=== PATIENT | male | born 1970 | race Caucasian/White ===

== ENCOUNTER 2019-03-05 19:36 | Emergency (ER) | payer MEDICARE, MEDICAID, SELFPAY ==
[2019-03-05 19:42] VITALS: BP 134/90; PULSE 101; RESP 16; TEMP 36.7; O2SAT 99
--- NOTE | 2019-03-05 20:02 | ED.GENADUL_ITS ---
Discharge Plan Disposition Patient Disposition: HOME Condition: Good Discharge Details Chief Complaint: Orthopedic Clinical Impression: Contusion ED Provider: Pramod Cedeno Home Meds and New Rx's Prescriptions: No Action mirtazapine 15 mg Tablet 15 mg PO HS RF: 0 carbidopa-levodopa [Sinemet] 25-100 mg Tablet 1 tab PO TID RF: 0 cholecalciferol (vitamin D3) [Vitamin D3] 400 unit Tablet 400 unit PO DAILY RF: 0 docusate sodium 100 mg Tablet 100 mg PO BID RF: 0 Discharge Instructions Instructions: Contusion in Adults (ED) Additional Instructions: Please continue to use Tylenol or Motrin as needed for pain. Please make sure that he drinks plenty of water. If you notice any worsening of your symptoms, or any new symptoms such as vomiting, diarrhea, fever, chills, shortness of breath, chest pain, numbness, weakness, or fainting , please return immediately to the emergency department for reevaluation. Please follow up with your primary care provider as soon as possible for reassessment and reevaluation. As always, it was a pleasure participating in your medical care today. Medical Decision Making This is a 48-year-old male with no significant past medical history except for Parkinson's, severe cerebral palsy, who is still able to perform some tasks with assistance. Family state that this morning he was found next to his bed instead of in it. He had been complaining of some pain in his right shoulder, but is otherwise nonverbal at baseline and unable to fully discuss his symptoms. Exam demonstrates redness, firmness and tenderness in the right shoulder. Minimal swelling of the left ankle, minimal swelling of the right elbow. Mild bruising over the right anterior chest. No evidence of significant deformities, no signs of other severe trauma. No evidence of blood behind the tympanic membranes or midline cervical thoracic or lumbar spine tenderness. Due to the patient's inability to verbalize his symptom we will get an x-ray of the chest right shoulder right elbow and left ankle. 9:20 PM Patient's x-rays have returned negative for any acute fracture, process, or dislocation. Feel his symptoms are most likely second to contusion. We will recommend continued hydration, NSAIDs as needed, and close follow-up. We will place his right arm in a sling for comfort as I am concerned there may be a ligamentous injury. Recommend close follow-up with his PCP. I have extensively reviewed the treatment plan and discharge instructions with the patient. I have addressed all patient concerns at this time. The patient was made aware of what symptoms to monitor for that would warrant a return to the emergency department. Discussed the plan with the patient, they demonstrate verbal understanding and agreement with our assessment and plan at this time. TECHNIQUE: Imaging protocol: XR Right elbow. Views: 3 or more views. COMPARISON: No relevant prior studies available. FINDINGS: Bones/joints: No acute fracture or dislocation. No significant joint effusion. Soft tissues: Moderate subcutaneous edema of the distal right arm/elbow. IMPRESSION: No acute fracture or dislocation. Moderate subcutaneous edema of the distal right arm/elbow. Thank you for allowing us to participate in the care of your patient. Dictated and Authenticated by: Atilio Simpson MD 03/05/2019 9:11 PM Eastern Time ( & [place]) TECHNIQUE: Imaging protocol: XR Right shoulder, complete 2 or more views. COMPARISON: No relevant prior studies available. FINDINGS: Bones/joints: No acute fracture or dislocation. Right acromioclavicular and coracoclavicular interval is within normal limits. Focal cortical thickening along the lateral aspect of the proximal right humeral diaphysis is attributed to muscular insertion tug lesion/deltoid insertion. Soft tissues: Moderate subcutaneous edema predominantly along the lateral aspect of the right arm. IMPRESSION: No acute fracture or dislocation. Moderate soft tissue edema, predominantly along the lateral aspect of the right arm. Thank you for allowing us to participate in the care of your patient. Dictated and Authenticated by: Atilio Simpson MD 03/05/2019 9:12 PM Eastern Time ( & [place]) TECHNIQUE: Imaging protocol: XR of the chest, 2 views. COMPARISON: No relevant prior studies available. FINDINGS: Lungs: Lungs are adequately inflated and symmetric. No focal consolidation or pulmonary edema. Pleural space: No pleural effusion. No pneumothorax. Heart/Mediastinum: Cardiomediastinal contours within normal limits. Bones/joints: No displaced fracture. Soft tissues: No focal soft tissue abnormailty. IMPRESSION: No displaced fracture. No pneumothorax or pleural effusion. Thank you for allowing us to participate in the care of your patient. Dictated and Authenticated by: Atilio Simpson MD 03/05/2019 9:13 PM Eastern Time ([place] & [place]) CLINICAL HISTORY: 48 years old, male; Injury or trauma; Fall; Initial encounter; Swelling (edema); Ankle; Left TECHNIQUE: Imaging protocol: XR Left ankle. Views: 3 or more views. COMPARISON: No relevant prior studies available. FINDINGS: Bones/joints: No suspicious osseous lytic or blastic lesion. No discrete or displaced fracture. No joint dislocation. Ankle mortise is preserved. Soft tissues: Mild anterolateral left ankle soft tissue edema. IMPRESSION: No acute fracture or dislocation. Thank you for allowing us to participate in the care of your patient. Dictated and Authenticated by: Atilio Simpson MD 03/05/2019 9:10 PM Eastern Time ([place] & [place]) HPI General Date/Time Provider Initiated Documentation: 03/05/19 19:41 . HPI Narrative: This is a 48-year-old male with a past medical history of cerebral palsy, parkinsons, on carbidopa levodopa, and mirtazapine who is cared for by bushra randolph, who presents today for evaluation of fall. Care family states that this morning they found the patient on the floor next to his bed, suspecting that he had fallen out. He had some swelling in his right shoulder, as well as his left ankle. Questionable bruising on his right ribs. It was unknown how long he had been on the ground. Normally the patient is able to help pull up his pants and do other tasks however throughout the day he was not using his right arm. Aside for that family denies other significant changes in mental status or activity. He is otherwise been eating and drinking as he normally does. He is on no blood thinners. No history of recurrent seizure. The patient is nonverbal at baseline, and cerebral palsy is severe. No other c omplaints or modifying factors. Related Data Home Medications Medication Instructions Recorded Confirmed carbidopa-levodopa [Sinemet] 1 tab PO TID 03/05/19 03/05/19 cholecalciferol (vitamin D3) 400 unit PO DAILY 03/05/19 03/05/19 [Vitamin D3] docusate sodium 100 mg PO BID 03/05/19 03/05/19 mirtazapine 15 mg PO HS 03/05/19 03/05/19 Allergies Allergy/AdvReac Type Severity Reaction Status Date / Time No Known Allergies Allergy Unverified 03/05/19 19:48 General Stated Complaint: Orthopedic FAHAD: 4 Review of Systems Review of Systems All systems reviewed & are unremarkable except as noted in HPI and below PFSH Medical History Autism (Acute) Parkinson disease (Chronic) Social History Smoking/Tobacco Use Status: Never Alcohol Intake: current Alcohol Intake frequency: holidays/special occasions only Substance use type: does not use Exam Narrative Exam Narrative: 1.Const: Well-nourished, Well-developed, appearing stated age 2.Eyes: PERRL, no conjunctival injection, and symmetrical lids. 3.ENT: Atraumatic external nose and ears. Moist MM. Neck: Symmetric, trachea midline, No thyromegaly. There is no evidence of raccoon eyes, mercer sign, CSF rhinorrhea, mastoid tenderness, cranial crepitus, hemotympanum, exophthalmos, or hyphema. Patient demonstrates intact dentition with no signs of tooth avulsion or fracture, no signs of jaw deformity, no evidence of a LeFort's fracture, with an intact palate, nose and orbital region. There is no evidence of a nasal septal hematoma. No proptosis. Jaw closes symmetrically. Airway is clear. 4.CVS: Regular rate and rhythm, Normal s1 and s2. No murmurs, carotid bruits, rubs, or gallops. Radial pulses 2+ bilaterally and symmetric. Dorsalis pedis pulses 2+ bilaterally and symmetric. 2+ capillary refill. No evidence of distant heart sounds. No extremity edema. No evidence of gross hemorrhage. 5.RESP: Airway clear, no obstructions. No abrasions, mild ecchymosis over the eighth rib the right. Chest movement symmetric with respirations. No chest wall tenderness. Trachea midline. No crepitus. No step offs. No paradoxical movements. Lungs are clear to auscultation bilaterally. No rales, rhonchi, wheezing or stridor. Breath sound symmetric. No Sucking chest wounds. No clinical evidence of significant chest trauma. 6.GI: Soft, nondistended, nontender. Bowel tones normoactive. No masses or organomegaly. No ecchymosis or abrasions. No periumbilical ecchymosis or seatbelt sign. No flank or CVA tenderness. No clinical signs of significant trauma. No clinical evidence of significant abdominal trauma. 7.MSK: No gross deformities or discolorations or lesions. Tolerates full range of motion of left upper left lower and right lower extremities without tenderness. All compartments of upper and lower extremities are soft with no apparent tenderness. Vascular exam demonstrates brisk capillary refill and intact pulses in all extremities. Pelvic exam demonstrates a stable pelvis, nontender to lateral compression and palpation of symphysis pubis.. Right shoulder demonstrates notable swelling and tenseness, no significant deformity can be appreciated. Arm does show some movement, however the patient does not really respond to commands which is his baseline. 8.Skin: Mild bruising over the right shoulder, small amount of bruising over the eighth rib on the right. 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 Sensation grossly intact, no focal neurologic deficits that can be appreciated. 10.Psych: Patient is at normal mental baseline per family who is at bedside Course Vital Signs Temperature 36.7 C 03/05/19 19:42 Pulse 101 H 03/05/19 19:42 Respiratory Rate 16 03/05/19 19:42 Blood Pressure 134/90 03/05/19 19:42 Pulse Oximetry 99 03/05/19 19:42 Temperature 36.7 C 03/05/19 19:42 Pulse 101 H 03/05/19 19:42 Respiratory Rate 16 03/05/19 19:42 Respiratory Effort 03/05/19 19:51 Blood Pressure 134/90 03/05/19 19:42 Pulse Oximetry 99 03/05/19 19:42
--- NOTE | 2019-03-05 20:45 | DI.RAD_ITS ---
SYMPTOM/DIAGNOSIS: FELL, BRUISE OF CHEST, SWELLING ELBOW, SHOULDER AND ANKLE LEFT ANKLE: Three views were obtained. The ankle mortise is well maintained. No fracture is identified. AP AND LATERAL CHEST: The heart is not enlarged. The lungs are clear and well expanded. No pleural effusion or pneumothorax. No injury to the bony thorax. CONCLUSION: No evidence of acute disease. RIGHT SHOULDER: Five views were obtained. There is no evidence of acute fracture or dislocation. RIGHT ELBOW: Three views were obtained. There is no evidence of an elbow joint effusion or hemarthrosis. No fracture is seen.
--- NOTE | 2019-03-05 21:10 | DI.VRAD_ITS ---
EXAM: XR Left Ankle Complete, 3 or more Views EXAM DATE/TIME: 03/05/2019 7:59 PM CLINICAL HISTORY: 48 years old, male; Injury or trauma; Fall; Initial encounter; Swelling (edema); Ankle; Left TECHNIQUE: Imaging protocol: XR Left ankle. Views: 3 or more views. COMPARISON: No relevant prior studies available. FINDINGS: Bones/joints: No suspicious osseous lytic or blastic lesion. No discrete or displaced fracture. No joint dislocation. Ankle mortise is preserved. Soft tissues: Mild anterolateral left ankle soft tissue edema. IMPRESSION: No acute fracture or dislocation. Dictated and Authenticated by: Atilio Simpson MD. Ordering:LB Benavidez MD
--- NOTE | 2019-03-05 21:11 | DI.VRAD_ITS ---
EXAM: XR Right Elbow Complete, 3 or more Views EXAM DATE/TIME: 03/05/2019 7:59 PM CLINICAL HISTORY: 48 years old, male; Injury or trauma; Fall; Initial encounter; Swelling (edema); Elbow; Bilateral TECHNIQUE: Imaging protocol: XR Right elbow. Views: 3 or more views. COMPARISON: No relevant prior studies available. FINDINGS: Bones/joints: No acute fracture or dislocation. No significant joint effusion. Soft tissues: Moderate subcutaneous edema of the distal right arm/elbow. IMPRESSION: No acute fracture or dislocation. Moderate subcutaneous edema of the distal right arm/elbow. Dictated and Authenticated by: Atilio Simpson MD. Ordering:LB Benavidez MD
--- NOTE | 2019-03-05 21:13 | DI.VRAD_ITS ---
EXAM: XR Right Shoulder, Complete, 2 or More Views EXAM DATE/TIME: 03/05/2019 7:59 PM CLINICAL HISTORY: 48 years old, male; Injury or trauma; Fall; Initial encounter; Swelling (edema); Shoulder; Right TECHNIQUE: Imaging protocol: XR Right shoulder, complete 2 or more views. COMPARISON: No relevant prior studies available. FINDINGS: Bones/joints: No acute fracture or dislocation. Right acromioclavicular and coracoclavicular interval is within normal limits. Focal cortical thickening along the lateral aspect of the proximal right humeral diaphysis is attributed to muscular insertion tug lesion/deltoid insertion. Soft tissues: Moderate subcutaneous edema predominantly along the lateral aspect of the right arm. IMPRESSION: No acute fracture or dislocation. Moderate soft tissue edema, predominantly along the lateral aspect of the right arm. Dictated and Authenticated by: Atilio Simpson MD. Ordering:LB Benavidez MD
--- NOTE | 2019-03-05 21:13 | DI.VRAD_ITS ---
EXAM: XR Chest, 2 Views EXAM DATE/TIME: 03/05/2019 7:59 PM CLINICAL HISTORY: 48 years old, male; Injury or trauma; Fall; Initial encounter; Blunt trauma (contusions or hematomas) TECHNIQUE: Imaging protocol: XR of the chest, 2 views. COMPARISON: No relevant prior studies available. FINDINGS: Lungs: Lungs are adequately inflated and symmetric. No focal consolidation or pulmonary edema. Pleural space: No pleural effusion. No pneumothorax. Heart/Mediastinum: Cardiomediastinal contours within normal limits. Bones/joints: No displaced fracture. Soft tissues: No focal soft tissue abnormailty. IMPRESSION: No displaced fracture. No pneumothorax or pleural effusion. Dictated and Authenticated by: Atilio Simpson MD. Ordering:LB Benavidez MD
[2019-03-05 21:52] VITALS: BP 134/90; PULSE 101; RESP 16; O2SAT 99
--- NOTE | 2019-03-05 21:53 | NUR.NOTE ---
Nursing Note: Placed sling to R arm. Discussed discharge instructions and follow up care with pt's senior care provider. developmental electronics assembler verbalized an understanding.
== END 2019-03-05 21:54 | disposition home or self-care (01) ==
PROVIDERS: Emergency Provider Student in an Organized Health Care Education/Training Program
DX: S20.211A Contusion of right front wall of thorax, initial encounter (principal); S40.011A Contusion of right shoulder, initial encounter; S50.01XA Contusion of right elbow, initial encounter; S90.02XA Contusion of left ankle, initial encounter; G20 Parkinson's disease; G80.9 Cerebral palsy, unspecified; W06.XXXA Fall from bed, initial encounter
CPT/HCPCS: 99284; 71046; 73030; 73080; 73610; 99282; L3650

== ENCOUNTER 2025-06-01 02:52 | Outpatient (CLI) | payer MEDICARE, MEDICAID, SELFPAY ==
--- NOTE | 2025-06-01 15:07 | ST.MBS ---
Date of Service Date of service: 06/01/25 Time of Service: 15:07 Modified Barium Swallow Study Findings: Video fluoroscopic Swallowing Evaluation (VFSE)/Modified Barium Swallow Study (MBSS) Speech Language Pathology Report Patient referred for VFSE/MBSS from Dr. Camacho Garcia MD given the following HPI: HPI & Patient report of function: Patient is a 54 year old M with with Parkinson's and nonverbal Autism, followed by [facility] DIRECTOR OF SOCIAL MEDIA MARKETING for dysphagia and referred to [facility] for instrumental swallow study. At home, his caregivers report full feed assistance, with on/off coughing especially with liquids. He is currently on a mechanical soft diet and thin liquids, using a nosey cup regularly to facilitate chin-down/neutral position. They provide limited volumes of liquid at a time for impulsiveness. He has a suction on order for home as he does do some pocketing, and his treating DIRECTOR OF SOC[employer] MEDIA MARKETING has also reported questions regarding a possible esophageal component. Caregivers report he has not had pneumonia in the last 2 years. IMPRESSIONS: Swallow safety is mildly impaired; swallow efficiency is mildly impaired. Mild-moderate oropharyngeal and esophageal dysphagia. Characterized primarily by poor oral holding/control (likely exacerbated by difficulty with pacing/impulsiveness), mild decreased laryngeal closure, and likely exacerbated by extraneous head movements during swallowing. All of these mild impairments and exacerbating factors resulting in trace deep penetration during the swallow of thin liquids when taken at large volumes/rapid pace, but without aspiration below the vocal folds. There was also mild to moderate liquid residue/pooling due to piecemeal deglutition and posterior spillage of oral residue. Mild vallecular and pyriform residue after the swallow, possibly exacerbated by osteophyte impacting flow at the level of UES. There was also stasis in distal portion of esophagus of 13mm tablet taken in puree, resolved easily with liquid wash. RECOMMENDATIONS: Diet Texture Recommendation:? IDDSI LEVEL SOLIDS 5-Minced & Moist Solids LIQUIDS 0-Thin Liquids Please see further details at?[email or web address].[email or web address] MEDICATIONS Whole with 4-Puree, follow with sip of thin liquid for esophageal clearance. Diet texture modification is per patient's preference; please adjust diet textures at patient's discretion & collaboration with care team. Do not alter medications (e.g., cut)? without advice from your MD or pharmacist. Risk Management Strategies:? Behavioral reflux precautions, including upright position during + 90 mins after meals. Small bites, approx [id number] Small sips, approx 10 mL Multiple swallows per bolus to encourage clearance of pharyngeal stasis/residue Control risk factors for aspiration pneumonia via (a) thorough oral hygiene & (b) maintaining physical mobility as tolerated PLAN: Therapy: Recommend subsequent outpatient session with DIRECTOR OF SOCIAL MEDIA MARKETING to review results of today's exam and develop treatment plan as appropriate. ----- OBJECTIVE Videofluoroscopic Swallow Evaluation (VFSE/MBSS) was conducted in the lateral projection by Speech-Language Pathologist, in collaboration with Radiologist, to evaluate oropharyngeal swallow function. Anatomic view under fluoroscopy: WFL PO Barium Contrast Trials Oral barium water-soluble contrast was administered as follows: IDDSI Level 0 Varibar thin liquid (40% w/v) IDDSI Level 4 Varibar pudding/pureed/extremely thick (40% w/v) IDDSI Level 7 Regular Solid/Easy to chew: 1/2 fig [place] cookie coated in 3 mL Varibar pudding 13 mm barium tablet taken with Tsp Puree. MBSImP Component Scores: COMPONENT Scale SCORE 1 Lip closure (0-4) 1 Resulted in interlabial escape, without progression to anterior lip 2 Hold Position (0-3) 3 Allowed posterior escape of greater than half of the bolus 3 Bolus Preparation (0-4) 2 Demonstrated disorganized chewing/mashing with solid pieces of bolus unchewed 4 Bolus Transport (0-4) 0 Was with brisk tongue motion 5 Oral Residue (0-4) 2 Was a collection on oral structures 6 Swallow Initiation (0-4) 1 Occurred when the bolus head was in valleculae 7 Soft Palate Elevation (0-4) 0 Resulted in no bolus between soft palate and the pharyngeal wall 8 Laryngeal Elevation (0-3) 1 Was decreased with partial superior movement of thyroid cartilage/partial approximation of arytenoids to epiglottic petiole 9 Anterior Hyoid Motion (0-2) 0 Demonstrated complete anterior movement 10 Epiglottic Movement (0-2) 0 Resulted in complete inversion 11 Laryngeal Closure (0-2) 1 Was incomplete with narrow a column of air/ contrast in laryngeal vestibule 12 Pharyngeal Stripping Wave (0-2) 0 Was present and complete 13 Pharyngeal Contraction (0-3) NA 14 PES Opening (0-3) 0 Was completely distended and complete duration with no obstruction of flow 15 Tongue Base Retraction (0-4) 1 Allowed a trace column of contrast or air between tongue base and pharyngeal wall 16 Pharyngeal Residue (0-4) 2 Was a collection of residue within or on pharyngeal structures 17 Esophageal Clearance (0-4) NA Results: COMPONENT Scale SCORE 1 Oral Score (0-18) 8 2 Pharyngeal Score (0-29) 4 3 Esophageal Score (0-4) 0 Penetration-Aspiration Scale: COMPONENT Scale SCORE 1 Thin liquid (1-8) 5 Contrast entered the airway, contacted the vocal folds, and was not ejected from the airway. 2 [place] thick (1-8) NA 3 Honey thick (1-8) NA 4 Pudding thick (1-8) 1 Contrast did not enter the airway 5 Cookie (1-8) 1 Contrast did not enter the airway [place] Pharyngeal Residue Severity Rating Scale (YPRS) (Kellee et al, 2015) Vallecula Residue Severity IV Moderate 25-50% Epiglottic ligament covered Pyriform Sin IV Moderate 25-50% Up wall to half full Observations not captured in quantitative data: -Deep penetration of thin liquids was scant/trace and only occurred on first of rapid/consecutive sequential swallows at high volume. -While trials, including 13mm tablet in tsp puree transited the pharynx and proximal esophagus easily, radiologist did note some stasis of barium tablet/puree in distal esophagus which cleared easily with a sip of thin liquid (water). Trialed Compensatory Strategies & Outcome: Maneuvers Successful(+) Unsuccessful(-) Postures Successful(+) Unsuccessful(-) 3 second Preparatory Set? -? Chin Tuck Posture? ? Cough? ? Posterior Head tilt? Reflexive? Cued? Throat Clear? ? Head Tilt to? Reflexive? Left? Cued? Right? ? Saliva swallow? ?+ (oral residue) Head Turn/Rotate to? ? Supraglottic Swallow? Left? ? Super-supraglottic Swallow? Right? ? Bolus Modifications Successful (+) Unsuccessful (-) Delivery/Alternating Consistencies ? Follow with Liquid Wash + (esophageal clearance) ? Follow with Solid Bolus? Delivery/Via Straw? ? Reduced Volume? +? Reduced Rate of Intake? +? Increased Viscosity? ? Other:?? ? Thank you for allowing us to take part in this patient's care. Please feel free to contact the [facility] Speech Language Pathology Department with any questions/concerns.
--- NOTE | 2025-06-01 15:15 | DI.RAD_ITS ---
Exam(s) RF MODIFIED SPEECH BA SWALLOW EXAM: RF MODIFIED SPEECH BA SWALLOW CLINICAL HISTORY: PARKINSONS DISEASE,G20.A1,dysphagia TECHNIQUE: Modified barium swallow was performed in conjunction with speech pathology. CONTRAST MATERIAL: Multiple consistencies of oral barium contrast were administered. COMPARISON: No exams were available for comparison FINDINGS: Note that this is not a dedicated esophagram, distal esophagus not evaluated. Laryngeal penetration observed with multiple swallows of thin barium. There is no evidence of aspiration with any consistency. Some pooling in the vallecular and piriform sinuses. IMPRESSION: Pooling in the vallecula and piriform sinuses. Later penetration during multiple swallows of thin barium. Speech pathology report to follow. RADIATION DOSE DELIVERED: isrrael Rob=14.4 mGy
[2025-06-01] MEDS: Barium Sulfate 40% W/V 240 ML BTL PO (15:20)
[2025-06-01] MEDS: Barium Sulfate Oral Paste 40% W/V 230 ML TUBE PO (15:21)
[2025-06-01] MEDS: Barium Sulfate 700 MG TAB PO (15:22)
[2025-06-01] MEDS: Barium Sulfate 81% w/w for Oral Suspension 148 GM BTL PO (15:23)
== END 2025-06-01 03:12 ==
PROVIDERS: PCP Family Medicine; Visit Provider Family Medicine
DX: G20.A1 Parkinson's disease without dyskinesia, without mention of fluctuations (principal); R13.10 Dysphagia, unspecified; J38.7 Other diseases of larynx
CPT/HCPCS: 92526; 74221